=== PATIENT | female | born 1975 | race African-American/Black ===

== ENCOUNTER 2018-12-14 08:28 | Outpatient (CLI) | payer OTHER ==
--- NOTE | 2018-12-14 11:32 | MRI ---
MRI BRAIN WITH AND WITHOUT CONTRAST: DATE: 12/14/18 HISTORY: 43-year-old female with abnormal CT. COMPARISON: CT of 01/08/16. No prior MRIs. TECHNIQUE: Multiple sequences obtained in axial, sagittal, and coronal planes; pre and post IV injection of gado linium-based contrast agent: MultiHance. FINDINGS: There is an approximately 1.8 x 0.5 cm curvilinear lesion in the left cerebellar hemisphere posterior ly and medially. It follows CSF signal intensity on all pulse sequences, and does not enhance with Ga dolinium based contrast. Although there is little or no gliosis surrounding it, this is probably a sm all old infarction. It does not have the appearance of a neoplasm. There is no associated recent or r emote hemorrhage associated with this. There is no restricted diffusion anywhere in the brain. There are multiple tiny T2 hyperintense focal lesions in the deep cerebral white matter, and a few in the subcortical white matter, involving the cantu radiata and centrum semiovale. These do not involve the brachium pontis or corpus callosum. Th e ventricles are normal in size and configuration. No mass effect, midline shift, abnormal enhancemen t or extra-axial fluid collection. IMPRESSION: 1. 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 This corresponds to the lesion found on CT. 2. Numerous tiny focal signal abnormalities in the cerebral white matter. This is probably mild-mode rate chronic ischemic white matter changes due to microvascular atherosclerosis, greater than typical for this age group (Does the patient have chronic hypertension or diabetes?). Multiple sclerosis is less likely. JN R POS: [facility]
== END 2018-12-14 08:29 | disposition home or self-care (01) ==
LOC: SCSMRI 08:28
PROVIDERS: ATTEND Family Medicine
DX: R90.89 Other abnormal findings on diagnostic imaging of central nervous system (principal); G93.9 Disorder of brain, unspecified; I70.90 Unspecified atherosclerosis; Z86.73 Personal history of transient ischemic attack (TIA), and cerebral infarction without residual deficits
CPT/HCPCS: 70553

== ENCOUNTER 2018-12-27 13:18 | Outpatient (CLI) | payer OTHER ==
--- NOTE | 2018-12-27 14:26 | ULT ---
ULTRASOUND CAROTID DOPPLER STANDARD: HISTORY: Syncope. TECHNIQUE: Real-time, blake scale, color flow, and spectral analysis of the extracranial carotid and vertebral ar teries was performed. FINDINGS: No elevated peak systolic velocities of the internal carotid arteries. Antegrade flow of both verteb ral arteries. IMPRESSION: No hemodynamically significant stenosis. POS: [facility]
== END 2018-12-27 13:19 | disposition home or self-care (01) ==
LOC: SCSULT 13:18
PROVIDERS: ATTEND Psychiatry & Neurology Neurology
DX: I66.01 Occlusion and stenosis of right middle cerebral artery (principal)
CPT/HCPCS: 93880

== ENCOUNTER 2019-03-13 10:11 | Outpatient (CLI) | payer OTHER ==
--- NOTE | 2019-03-19 08:36 | MMO ---
Bilateral MAMMO Bilat Screen [facility]. CLINICAL HISTORY: Patient is 43 years old and is seen for screening. The patient has no family history of breast cancer. The patient has no personal history of cancer. VIEWS: The views performed were: bilateral craniocaudal with tomosynthesis and bilateral mediolateral oblique with tomosynthesis. MAMMOGRAM FINDINGS: The breasts are heterogeneously dense, which could obscure a lesion on mammography. There are no suspicious masses, suspicious calcifications, or new areas of architectural distortion. IMPRESSION: THERE IS NO MAMMOGRAPHIC EVIDENCE OF MALIGNANCY. A ROUTINE FOLLOW-UP MAMMOGRAM IN 1 YEAR IS RECOMMENDED. THE RESULTS OF THIS EXAM WERE SENT TO THE PATIENT. ACR BI-RADS Category 1 - Negative MAMMOGRAPHY NOTE: 1. A negative mammogram report should not delay a biopsy if a dominant of clinically suspicious mass is present. 2. Approximately 10% to 15% of breast cancers are not detected by mammography. 3. Adenosis and dense breasts may obscure an underlying neoplasm.
== END 2019-03-13 10:12 | disposition home or self-care (01) ==
LOC: BICMAMMO 10:11
PROVIDERS: ATTEND Family Medicine
DX: Z12.31 Encounter for screening mammogram for malignant neoplasm of breast (principal)
CPT/HCPCS: 77063; 77067